=== PATIENT | male | born 1985 | race Hispanic/Latino ===

== ENCOUNTER 2021-02-18 09:06 | Observation (INO) | payer SELFPAY ==
--- NOTE | ~2021-02-18 | CT_ITS ---
EXAMINATION: CT abdomen pelvis w con DATE: 02/18/2021 12:38 INDICATION: Abdominal pain and vomiting TECHNIQUE: Computed tomography (CT) of the abdomen and pelvis was performed with 100 cc Omnipaque 350 intravenous contrast. The dose-length product was 749.28 mGy-cm. Automated exposure control and iter ative reconstruction technique were employed. COMPARISON: None. FINDINGS: Heart size normal. No significant pleural or pericardial effusion. Fatty infiltration of the liver. The spleen, pancreas, right adrenal gland and kidneys are unremarkab le. There is a 1.5 cm left adrenal mass, statistically likely benign adenoma. Gallbladder is present. Nonobstructive bowel gas pattern. There is a thickened enhancing appendix measuring up to 1.6 cm max imum transverse dimension with mild periappendiceal inflammation. No evidence for perforation or absc ess. No free air or free fluid. No acute osseous abnormality. Mild lumbar spondylosis. IMPRESSION: 1. Acute uncomplicated appendicitis. Reviewed, dictated and finalized at location A.
[2021-02-18 09:11] VITALS: BP 159/87; PULSE 68; RESP 20; TEMP 35.7; O2SAT 100
[2021-02-18 09:45] LABS: Basophils Absolute Auto 0.1 K/mm3 (0.0-0.1); Basophils Percent Auto 0.3 % (0.2-1.2); Hematocrit 44.9 % (42.0-52.0); Hemoglobin 16.2 g/dL (14.0-18.0); Immature Granulocyte Percent A 0.4 % (0-0.5); Lymphocytes Absolute Auto 1.52 K/mm3 (0.9-3.2); Lymphocytes Percent Auto 6.8 % (18.3-44.2); Mean Corpuscular HGB Conc 36.1 g/dl (32-36); Mean Corpuscular Hemoglobin 30.7 pg (26-34); Mean Platelet Volume 9.2 fl (7.4-10.4); Monocytes Absolute Auto 0.8 K/mm3 (0.1-0.6); Monocytes Percent Auto 3.4 % (2.6-8.5); Neutrophils Absolute Auto 19.8 K/mm3 (1.3-6.7); Neutrophils Percent Auto 89.1 % (45.5-73.1); Platelet Count Result 344 k/mm3 (150-375); Red Blood Count 5.28 M/mm3 (4.6-6.20); Red Cell Distribution Width 12.5 % (11.5-14.5); White Blood Count 22.3 K/mm3 (4.5-10.0)
[2021-02-18 10:02] LABS: Alanine Aminotransferase 87 U/L (4-50); Albumin Level 5.6 g/dL (3.5-5.1); Alkaline Phosphatase 88 U/L (38-126); Anion Gap 14 mmol/L (8-16); Aspartate Amino Transferase 45 U/L (17-59); Bilirubin,Total 0.8 mg/dL (0.2-1.3); Blood Urea Nitrogen 19 mg/dL (9-20); Calcium 9.4 mg/dL (8.4-10.2); Carbon Dioxide 28 mmol/L (22-30); Chloride 101 mmol/L (98-107); Estimated CRCL calculation 116 ml/min; Estimated Glomerular Filt Rate > 60; Glucose 153 mg/dL (65-110); Lipase 84 U/L (23-300); Potassium 3.7 mmol/L (3.4-5.0); Sodium 143 mmol/L (137-145)
[2021-02-18 11:05] VITALS: BP 137/87; PULSE 80; RESP 12; O2SAT 98
--- NOTE | 2021-02-18 11:38 | ED.GENADULT ---
HPI - General Adult General Chief complaint: Abdominal Pain Stated complaint: abd pain Time Seen by Provider: 02/18/21 10:51 Source: patient Mode of arrival: ambulatory Limitations: language barrier and other (history obtained with assistance of historic interpreter) History of Present Illness HPI narrative: Patient presents for evaluation of abdominal pain. Symptom onset 0200 this morning. Symptoms started after eating a cheese quesadilla one hour prior to time of symptom onset. He states the pain is constant, progressively worsening, currently 10/10 in severity, described as gripping and squeezing . He has experienced nausea and vomiting. Last bowel movement around 0400 this morning, small in size, solid in consistency. No blood or mucous in the stool. He had similar episodes back in October and also in December. He did not seek medical assistance at that time. Denies ETOH use, cigarette use and illicit drug use. No hx of abdominal surgeries. He tried taking an unknown OTC agent for his symptoms without improvement in his symptoms thereafter. Related Data Home Medications Medication Instructions Recorded Confirmed No Home Medications 02/18/21 02/18/21 Allergies Allergy/AdvReac Type Severity Reaction Status Date / Time No Known Allergies Allergy Verified 02/18/21 11:49 Review of Systems Review of Systems: CONSTITUTIONAL:Reports hot flashes and chills EYES: Denies visual changes, redness, or discharge. ENT: Denies rhinorrhea, congestion, sore throat, or otalgia. CARDIOVASCULAR: Denies chest pain, palpitations, or edema. RESPIRATORY: Denies cough or dyspnea. GASTROINTESTINAL:Reports abdominal pain, nausea, vomiting and constipation GENITOURINARY: Denies dysuria or hematuria. SKIN: Denies rash or itching. MUSCULOSKELETAL: Denies back pain, joint pain, or myalgia. NEUROLOGIC: Denies headache, numbness, dizziness, or weakness. PSYCHIATRIC: Denies anxiety or depression. 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 Visibly uncomfortable but in no apparent distress. Exhibits facial grimacing HEAD: Normocephalic, atraumatic. EYES: PERRLA and EOMI. ENT: Nares clear, no rhinorrhea or epistaxis. Mucous membranes moist. Oropharynx without tonsillar hypertrophy exudate or other lesions. Bilateral TMs pearly monsalve nonbulging NECK: Supple. No adenopathy or masses. No carotid bruits or JVD CHEST: Clear to auscultation. No respiratory distress. No wheezes rales or rhonchi HEART: Regular rate and rhythm. No murmur heard. Normal peripheral pulses. ABDOMEN: Soft, tenderness in RUQ and RLQ without rebound EXTREMITIES: Normal range of motion. No edema. SKIN: Warm, dry, no rash. NEURO: No focal deficits. Alert and oriented x3. Trinidadian speaking PSYCH: Normal mood and affect. Course Course Emergency Course: This is a 35-year-old male that presented with complaints of abdominal pain, he had a leukocytosis but lactate was WNL. Initial consideration was for cholecystitis versus appendicitis versus pancreatitis. He was given morphine in the ER and Zofran. Symptoms improved. CT imaging showed uncomplicated appendicitis. Discussed all relevant facts of case with general surgery, Dr. Vickers. He indicates to admit patient to
[2021-02-18] MEDS: SODIUM CHLORIDE 0.9% IV 1,000 ML 999 ML IV CONT (11:50)
[2021-02-18] MEDS: MORPHINE SULFATE (*CRX) 4 MG/ML INJ IV PUSH ×2 (11:50→20:16)
[2021-02-18] MEDS: ONDANSETRON INJ 4 MG/2 ML VIAL IV PUSH ×2 (11:50→20:16)
[2021-02-18 12:13] LABS: Lactic Acid Reflex 2.1 mmol/L (0.7-2.1)
[2021-02-18 14:20] VITALS: BP 131/84; PULSE 101; RESP 20; O2SAT 99
[2021-02-18 15:01] LABS: Reflex Lactic Acid Yes or No Add Lactic
[2021-02-18 15:24] LABS: Lactic Acid 1.8 mmol/L (0.7-2.1)
--- NOTE | 2021-02-18 16:01 | ADMGEN ---
This patient, Chiki Infante, was admitted to 2 Medical Room 261-01. Patient oriented to hospital policies and general routines including ID bracelet, bed and alarms, visiting hours, pain management, procedures, bathroom and other care routines, personal items, smoking policy, room service/diet, and visiting hours. Information on how to activate the Rapid Response Team has been discussed. Patient is encouraged to report perceived risks to care and to ask questions if they do not understand what they are told or what they should do.
[2021-02-18 16:05] VITALS: BP 121/68; PULSE 102; RESP 16; TEMP 37.8; O2SAT 99
[2021-02-18 16:20] VITALS: BMI 33.3
[2021-02-18] MEDS: SODIUM CHLORIDE 0.9% IV 1,000 ML 125 ML IV CONT (17:45)
[2021-02-18 22:00] VITALS: BP 115/62; PULSE 88; RESP 20; TEMP 37.3; O2SAT 98
[2021-02-19] VITALS (12 sets, daily range): BP systolic 113–150; BP diastolic 60–90; PULSE 60–90; RESP 16–21; TEMP 36.2–36.8; O2SAT 97–100
[2021-02-19 02:02] LABS: Add Urine Microscopic? YES; Appearance Urine Clear (Clear); Bacteria Urine Trace /hpf; Bilirubin Urine Negative (Negative); Blood Urine Negative (Negative); Color Urine Yellow (Yellow); Glucose Urine UA Negative (Negative); Ketones Urine Negative (Negative); Leukocyte Esterase Ur Negative LEU/UL (Negative); Nitrate Urine Negative (Negative); Protein Urine 1+ mg/dL (Negative); Urobilinogen Urine Negative mg/dL (<2.0); WBC Urine 0-3 /hpf
[2021-02-19 02:10] LABS: Specific Grav Ur 1.036 (1.001-1.035)
[2021-02-19] MEDS: SODIUM CHLORIDE 0.9% IV 1,000 ML 125 ML IV CONT (03:10)
[2021-02-19 06:43] LABS: Basophils Percent Auto 0.3 % (0.2-1.2); Eosinophils Absolute Auto 0.1 K/mm3 (0-0.3); Eosinophils Percent Auto 0.6 % (0-4.4); Hematocrit 39.2 % (42.0-52.0); Hemoglobin 13.7 g/dL (14.0-18.0); Immature Granulocyte Absolute 0.05 K/mm3 (0.00-0.031); Immature Granulocyte Percent A 0.4 % (0-0.5); Lymphocytes Absolute Auto 2.41 K/mm3 (0.9-3.2); Lymphocytes Percent Auto 18.4 % (18.3-44.2); Mean Corpuscular HGB Conc 34.9 g/dl (32-36); Mean Corpuscular Hemoglobin 30.2 pg (26-34); Mean Corpuscular Volume 86.5 fl (80-100); Mean Platelet Volume 9.6 fl (7.4-10.4); Monocytes Absolute Auto 1.2 K/mm3 (0.1-0.6); Monocytes Percent Auto 9.2 % (2.6-8.5); Neutrophils Absolute Auto 9.3 K/mm3 (1.3-6.7); Neutrophils Percent Auto 71.1 % (45.5-73.1); Platelet Count Result 290 k/mm3 (150-375); Red Blood Count 4.53 M/mm3 (4.6-6.20); Red Cell Distribution Width 13.1 % (11.5-14.5); White Blood Count 13.1 K/mm3 (4.5-10.0)
[2021-02-19 06:57] LABS: Alanine Aminotransferase 54 U/L (4-50); Albumin Level 4.2 g/dL (3.5-5.1); Alkaline Phosphatase 54 U/L (38-126); Anion Gap 9 mmol/L (8-16); Aspartate Amino Transferase 28 U/L (17-59); Blood Urea Nitrogen 17 mg/dL (9-20); Calcium 8.2 mg/dL (8.4-10.2); Carbon Dioxide 26 mmol/L (22-30); Chloride 105 mmol/L (98-107); Estimated CRCL calculation 102 ml/min; Estimated Glomerular Filt Rate > 60; Glucose 100 mg/dL (65-110); Potassium 3.8 mmol/L (3.4-5.0); Sodium 140 mmol/L (137-145)
--- NOTE | 2021-02-19 09:31 | PM.IMHP ---
H&P: HPI History of Present Illness Date/Time: 02/19/21 09:31 Chief Complaint: right lower quadrant pain Narrative: this is a 35-year-old Jordanian-speaking male who presented to the emergency department yesterday with right lower quadrant pain. Interpretation service is used for communication. He states that the pain started around 2:00 a.m. yesterday morning. He denies any fevers, nausea, or vomiting. He did have an episode like this about 4 months ago, but he did not present to the hospital and this pain went away on its own. This time the pain became more severe and was persisting. He denies any other associated symptoms. He is otherwise healthy and this is the 1st time he has ever been to the hospital. Review of Systems Review of Systems: All systems reviewed & are unremarkable except as noted in HPI and below Constitutional: Constitutional: Denies chills and Denies fever(s) Eyes: Eyes: Denies change in vision ENT: Denies hearing loss, Denies neck pain and Denies sore throat Cardiovascular: Cardiovascular: Denies chest pain and Denies dyspnea Respiratory: Respiratory: Denies cough, Denies dyspnea and Denies wheezing Gastrointestinal: Gastrointestinal: Reports as per HPI Genitourinary: Genitourinary: Denies hematuria and Denies dysuria Musculoskeletal: Musculoskeletal: Denies arthralgias, Denies joint swelling and Denies neck pain Allergic/Immunologic: Allergic/Immunologic: Denies wheezing PMFSH Past Medical History Medical History No pertinent past medical history Surgical History Surgical History No pertinent past surgical history Family History Family History Mother No pertinent past medical history Diabetes mellitus Father Diabetes mellitus Social History Social History Smoking status: Never smoker Second hand tobacco smoke exposure: No Alcohol intake: never Substance use: never Living arrangements: with friend(s) Additional occupation/education comments: Works on a [employer] Gender identity (if verbalized by the patient): Male Spiritual care concerns: No Meds Home Medications and Allergies Home Medications Medication Instructions Recorded Confirmed Type No Home Medications 02/18/21 02/18/21 History Allergies Allergy/AdvReac Type Severity Reaction Status Date / Time No Known Allergies Allergy Verified 02/18/21 11:49 Vital Signs Vital Signs - 24 hr 02/18/21 11:05 02/18/21 14:20 02/18/21 16:05 Temperature 37.8 C H Pulse Rate 80 101 H 102 H Respiratory Rate 12 20 16 Blood Pressure 137/87 131/84 121/68 Pulse Oximetry 98 99 99 02/18/21 22:00 02/19/21 06:00 Temperature 37.3 C 36.4 C Pulse Rate 88 60 Respiratory Rate 20 21 H Blood Pressure 115/62 124/60 Pulse Oximetry 98 100 Exam Const: General: alert; No acute distress Orientation/consciousness: patient oriented x3 Limitations: no limitations HENMT: Head: normocephalic and atraumatic Ears: hearing grossly normal bilaterally General nose exam: Normal external nose present and Normal nares present Mouth: Yes Normal oral and palatal mucosa present and Yes moist mucous membranes Eyes: General: appearance normal, both eyes and all related structures Conjunctivae: conjunctivae normal Sclera: sclerae normal Pupils: Equal, round and reactive pupils present EOM: EOMs intact bilaterally Neck: Neck: normal visual inspection, full ROM, no lymphadenopathy, supple and no JVD Lymphatic: no lymphadenopathy noted Chest: Chest palpation & inspection: normal inspection of the chest Resp: Effort & Inspection: normal respiratory effort and able to speak in complete sentences Auscultation: clear to auscultation bilaterally Percussion: percussion normal Cardio: Jugular venous
--- NOTE | 2021-02-19 09:36 | WPDHPUPDATE1 ---
History and Physical Update Update Date/Time: 02/19/21 09:36 History and Physical has been reviewed, including an updated exam of the patient. There are NO changes in the patient's condition. Risks, benefits, and alternatives have been discussed and questions answered. Patient agrees to proceed with procedure.
--- NOTE | 2021-02-19 11:11 | SUR.PREOP ---
USED [employer]LE INSPECTOR FOR SWISS SPEAKING
[2021-02-19] MEDS: LACTATED RINGERS 1,000 ML 30 ML IV CONT (11:34)
--- NOTE | 2021-02-19 12:17 | WPDANESEPP ---
Anes - Eval Pre Procedure Procedure: Operation Date: 02/19/21 12:00 Proposed Procedures p Laparoscopic Appendectomy, Possible Open - Tj Vickers DO Date/Time: 02/19/21 12:17 Pre Op Diagnosis: appendicitis Patient Data Age: 35 Gender: M Height: 1.63 m Weight: 88 kg Last Vital Signs Temp 36.7 C 02/19/21 11:24 Pulse 65 02/19/21 11:24 Resp 18 02/19/21 11:24 BP 122/72 02/19/21 11:24 Pulse Ox 99 02/19/21 11:24 Allergies Allergy/AdvReac Type Severity Reaction Status Date / Time No Known Allergies Allergy Verified 02/18/21 11:49 Home Medications Medication Instructions Recorded Confirmed Type No Home Medications 02/18/21 02/18/21 History Laboratory Tests 02/18/21 02/19/21 02/19/21 15:10 01:27 05:44 WBC 13.1 K/mm3 H K/mm3 (4.5-10.0) RBC 4.53 M/mm3 L M/mm3 (4.6-6.20) Hgb 13.7 g/dL L g/dL (14.0-18.0) Hct 39.2 % L % (42.0-52.0) MCV 86.5 fl fl (80-100) MCH 30.2 pg pg (26-34) MCHC 34.9 g/dl g/dl (32-36) RDW 13.1 % % (11.5-14.5) Plt Count 290 k/mm3 k/mm3 (150-375) MPV 9.6 fl fl (7.4-10.4) Immature Gran % (Auto) 0.4 % % (0-0.5) Neut % (Auto) 71.1 % % (45.5-73.1) Lymph % (Auto) 18.4 % % (18.3-44.2) [place] % (Auto) 9.2 % H % (2.6-8.5) Eos % (Auto) 0.6 % % (0-4.4) Baso % (Auto) 0.3 % % (0.2-1.2) Lymph # (Auto) 2.41 K/mm3 K/mm3 (0.9-3.2) [place] # (Auto) 1.2 K/mm3 H K/mm3 (0.1-0.6) Eos # (Auto) 0.1 K/mm3 K/mm3 (0-0.3) Baso # (Auto) 0.0 K/mm3 K/mm3 (0.0-0.1) Abs Immat Gran (auto) 0.05 K/mm3 H K/mm3 (0.00-0.031) Absolute Neuts (auto) 9.3 K/mm3 H K/mm3 (1.3-6.7) Absolute Nucleated RBC 0.0 K/mm3 K/mm3 (0.0-0.012) Nucleated RBC % 0.0 % % (0.0-0.2) Sodium Potassium Chloride Carbon Dioxide Anion Gap BUN Creatinine Estim Creat Clear Calc Estimated GFR Glucose Lactic Acid 1.8 mmol/L mmol/L (0.7-2.1) Calcium Total Bilirubin AST ALT Alkaline Phosphatase Total Protein Albumin Urine Color Yellow (Yellow) Urine Appearance Clear (Clear) Urine pH 7.0 (5.0-9.0) Ur Specific [place] 1.036 H (1.001-1.035) Urine Protein 1+ mg/dL H mg/dL (Negative) Urine Glucose (UA) Negative mg/dL mg/dL (Negative) Urine Ketones Negative mg/dL mg/dL (Negative) Ur Blood (Man) Negative (Negative) Urine Nitrate Negative (Negative) Urine Bilirubin Negative (Negative) Urine Urobilinogen Negative mg/dL mg/dL (<2.0) Leukocyte Esterase Rfl Negative DANN/UL DANN/UL (Negative) Urine RBC 11-20 /hpf H /hpf (0-2) Urine WBC 0-3 /hpf /hpf Urine Bacteria Trace /hpf /hpf 02/19/21 05:44 WBC RBC Hgb Hct MCV MCH MCHC RDW Plt Count MPV Immature Gran % (Auto) Neut % (Auto) Lymph % (Auto) [place] % (Auto) Eos % (Auto) Baso % (Auto) Lymph # (Auto) [place] # (Auto) Eos # (Auto) Baso # (Auto) Abs Immat Gran (auto) Absolute Neuts (auto) Absolute Nucleated RBC Nucleated RBC % Sodium 140 mmol/L mmol/L (137-145) Potassium 3.8 mmol/L mmol/L (3.4-5.0) Chloride 105 mmol/L mmol/L (98-107) Carbon Dioxide 26 mmol/L mmol/L (22-30) Anion Gap 9 mmol/L mmol/L (8-16) BUN 17 mg/dL mg/dL (9-20) Creatinine 0.90 mg/dL mg/dL (0.7-1.3) Estim Creat Clear Calc 102 ml/min ml/min Estimated GFR
--- NOTE | 2021-02-19 12:23 | WPDANESEPPF ---
Anes - Initial Pre Proc Eval Procedure: Operation Date: 02/19/21 12:00 Proposed Procedures p Laparoscopic Appendectomy, Possible Open - Tj Vickers DO Date/Time: 02/19/21 12:23 Surgeon: Tj Vickers DO Pre Op Diagnosis: appendicitis Patient Data Age: 35 Gender: M Height: 1.63 m Weight: 88 kg Last Vital Signs Temp 98.1 F 02/19/21 11:24 Pulse 65 02/19/21 11:24 Resp 18 02/19/21 11:24 BP 122/72 02/19/21 11:24 Pulse Ox 99 02/19/21 11:24 Allergies Allergy/AdvReac Type Severity Reaction Status Date / Time No Known Allergies Allergy Verified 02/18/21 11:49 Home Medications Medication Instructions Recorded Confirmed Type No Home Medications 02/18/21 02/18/21 History Laboratory Tests 02/18/21 02/19/21 02/19/21 15:10 01:27 05:44 WBC 13.1 K/mm3 H K/mm3 (4.5-10.0) RBC 4.53 M/mm3 L M/mm3 (4.6-6.20) Hgb 13.7 g/dL L g/dL (14.0-18.0) Hct 39.2 % L % (42.0-52.0) MCV 86.5 fl fl (80-100) MCH 30.2 pg pg (26-34) MCHC 34.9 g/dl g/dl (32-36) RDW 13.1 % % (11.5-14.5) Plt Count 290 k/mm3 k/mm3 (150-375) MPV 9.6 fl fl (7.4-10.4) Immature Gran % (Auto) 0.4 % % (0-0.5) Neut % (Auto) 71.1 % % (45.5-73.1) Lymph % (Auto) 18.4 % % (18.3-44.2) [place] % (Auto) 9.2 % H % (2.6-8.5) Eos % (Auto) 0.6 % % (0-4.4) Baso % (Auto) 0.3 % % (0.2-1.2) Lymph # (Auto) 2.41 K/mm3 K/mm3 (0.9-3.2) [place] # (Auto) 1.2 K/mm3 H K/mm3 (0.1-0.6) Eos # (Auto) 0.1 K/mm3 K/mm3 (0-0.3) Baso # (Auto) 0.0 K/mm3 K/mm3 (0.0-0.1) Abs Immat Gran (auto) 0.05 K/mm3 H K/mm3 (0.00-0.031) Absolute Neuts (auto) 9.3 K/mm3 H K/mm3 (1.3-6.7) Absolute Nucleated RBC 0.0 K/mm3 K/mm3 (0.0-0.012) Nucleated RBC % 0.0 % % (0.0-0.2) Sodium Potassium Chloride Carbon Dioxide Anion Gap BUN Creatinine Estim Creat Clear Calc Estimated GFR Glucose Lactic Acid 1.8 mmol/L mmol/L (0.7-2.1) Calcium Total Bilirubin AST ALT Alkaline Phosphatase Total Protein Albumin Urine Color Yellow (Yellow) Urine Appearance Clear (Clear) Urine pH 7.0 (5.0-9.0) Ur Specific [place] 1.036 H (1.001-1.035) Urine Protein 1+ mg/dL H mg/dL (Negative) Urine Glucose (UA) Negative mg/dL mg/dL (Negative) Urine Ketones Negative mg/dL mg/dL (Negative) Ur Blood (Man) Negative (Negative) Urine Nitrate Negative (Negative) Urine Bilirubin Negative (Negative) Urine Urobilinogen Negative mg/dL mg/dL (<2.0) Leukocyte Esterase Rfl Negative DANN/UL DANN/UL (Negative) Urine RBC 11-20 /hpf H /hpf (0-2) Urine WBC 0-3 /hpf /hpf Urine Bacteria Trace /hpf /hpf 02/19/21 05:44 WBC RBC Hgb Hct MCV MCH MCHC RDW Plt Count MPV Immature Gran % (Auto) Neut % (Auto) Lymph % (Auto) [place] % (Auto) Eos % (Auto) Baso % (Auto) Lymph # (Auto) [place] # (Auto) Eos # (Auto) Baso # (Auto) Abs Immat Gran (auto) Absolute Neuts (auto) Absolute Nucleated RBC Nucleated RBC % Sodium 140 mmol/L mmol/L (137-145) Potassium 3.8 mmol/L mmol/L (3.4-5.0) Chloride 105 mmol/L mmol/L (98-107) Carbon Dioxide 26 mmol/L mmol/L (22-30) Anion Gap 9 mmol/L mmol/L (8-16) BUN 17 mg/dL mg/dL (9-20) Creatinine 0.90 mg/dL mg/dL (0.7-1.3) Estim Creat Clear Calc
[2021-02-19] MEDS: BUPIVACAINE HCL 0.5% PF 30 ML VIAL INFILTRATE (13:00)
--- NOTE | 2021-02-19 13:14 | SUR.OPER ---
PRE OP [employer] [facility] [facility] #[id number] USED FOR PREOP QUESTIONS AND EXPLANATIONS OF SURGERY PER DR HARDWICK AND Rios TURNER RN.
--- NOTE | 2021-02-19 13:30 | W.PM.PROC2 ---
Procedure Note - Detailed Date of Procedure 02/19/21 Pre-op Diagnosis appendicitis Post-op Diagnosis same Procedure Performed Laparoscopic appendectomy Surgeon Tj Vickers, DO Anesthesia general and local (0.5% bupivicaine) Indications This is a 35-year-old Slovak-speaking man who presented to the emergency department yesterday with right lower quadrant pain that woke come up around 2 a.m.. He denied any fevers or chills. CT of his abdomen and pelvis showed evidence of acute appendicitis. He was admitted for further treatment. Discussions were made with the patient about treatment options and decision was made to proceed with laparoscopic appendectomy, possible open. Findings Laparoscopic appendectomy was performed. The appendix appeared acutely inflamed, but there was no evidence of perforation or abscess. The base of the appendix appeared healthy and viable. The appendix was removed and sent to the lab for pathology. No other intra-abdominal abnormalities were noted. Description of Procedure Procedure as well as risks, benefits, and alternatives were explained to the patient. The patient agreed to proceed. Written consent was obtained and placed in chart prior to procedure. The patient was brought back to surgical suite. He was placed supine on operating table. Time-out was done to confirm the patient and procedure. The patient was then intubated by the Anesthesia Department. His abdomen was prepped and draped in sterile fashion using chlorhexidine prep. A 5 mm incision was made just to the left of the patient's umbilicus and a 5 mm Optiview trocar was advanced through the abdominal layers under direct visualization. Once inside the peritoneal cavity, carbon dioxide insufflation was used to create a pneumoperitoneum. The camera was inserted and the abdomen was inspected. No immediate abnormalities were identified. The patient was then placed in slight Trendelenburg position and rotated to the left. A 5 mm incision was made in the suprapubic region in midline and a 5 mm trocar was inserted under direct visualization. A 12 mm incision was made in the left lower quadrant and a 12 mm trocar was inserted under direct visualization. The right lower quadrant was carefully inspected. The cecum was identified and then this was traced back to the appendix. The appendix was identified and grasped at the mesoappendix and lifted anteriorly. Careful blunt dissection was carried out at the base of the appendix through the mesoappendix using a [place] grasper. An Endo-DAVID 45 mm blue load stapler was then advanced across the base of the appendix and clamped and fired. A white reload was then clamped across the mesoappendix and fired. This freed up our appendix completely. It was then placed in an EndoCatch bag and removed through the left lower quadrant port. The staple lines were then inspected. Hemostasis appeared adequate and the staple lines appeared secure. The area was then irrigated with sterile saline. The pelvis was then carefully inspected and irrigated with sterile saline as well and the remainder of the abdomen was carefully inspected. The patient was then flattened out in bed. One final inspection was made around the abdominal cavity and no other abnormalities were seen. The left lower quadrant port was removed and a Suman-Violeta cone was used to approximate the fascia with an 0 Vicryl simple interrupted suture. The remaining ports were then removed under direct visualization. The camera was removed and the pneumoperitoneum was released. 0.5% bupivacaine with epinephrine was infiltrated locally around each of the incisions. The skin of the incisions was then approximated using 4-0 Monocryl subcuticular suture and Exofin glue was applied on top. The patient was then awakened from anesthesia, extubated, and transferred to Recovery. Estimated Blood Loss 10 Urine Output 500 Pathology yes (Appendix) Complications No immediate
--- NOTE | 2021-02-19 13:33 | PM.DS ---
DS: Admitting Diagnosis Discharge Date 02/19/2021 Admitting Diagnosis Acute appendicitis DS: Discharge Diagnosis Discharge Diagnosis (1) Acute appendicitis: Qualifiers: Acute appendicitis type: unspecified acute appendicitis type Qualified Code(s): K35.80 - Unspecified acute appendicitis Code(s): K35.80 - Unspecified acute appendicitis Status: Acute DS: Summary Hospital Course Reason for hospitalization: Acute appendicitis Hospital Course: This is a 35-year-old man who presented to the emergency department on 02/18/2021 with right lower quadrant pain. Workup showed elevated white blood count and CT showed evidence of acute appendicitis. He was started on IV Zosyn and was admitted to the hospital for observation. Decision was made to proceed with laparoscopic appendectomy on 02/19/2021. Surgery was uncomplicated. He was returned to the surgical floor postoperatively. His diet and activity were advanced as tolerated. Once his pain was adequately controlled, vitals remained stable, he was tolerating a regular diet, and ambulating in the kinsey, he was discharged home. Status at Discharge Functional status at discharge: independent ambulation Overall status at discharge: patient is progressing back to baseline Time Spent with Patient Time attestation: Total time spent providing and/or coordinating discharge services: Time spent: Less than 30 minutes Exam Narrative: Unchanged from preop exam aside from surgical changes DS: Data Data Completed and Pending Pending studies at discharge: Pending at discharge 02/19/21 13:06 Surgical [PTH] Routine Labs on day of discharge: Labs from last 24 hours 02/19/21 02/19/21 02/19/21 05:44 05:44 01:27 WBC 13.1 H RBC 4.53 L Hgb 13.7 L Hct 39.2 L MCV 86.5 MCH 30.2 MCHC 34.9 RDW 13.1 Plt Count 290 MPV 9.6 Immature Gran % (Auto) 0.4 Neut % (Auto) 71.1 Lymph % (Auto) 18.4 [place] % (Auto) 9.2 H Eos % (Auto) 0.6 Baso % (Auto) 0.3 Lymph # (Auto) 2.41 [place] # (Auto) 1.2 H Eos # (Auto) 0.1 Baso # (Auto) 0.0 Abs Immat Gran (auto) 0.05 H Absolute Neuts (auto) 9.3 H Absolute Nucleated RBC 0.0 Nucleated RBC % 0.0 Sodium 140 Potassium 3.8 Chloride 105 Carbon Dioxide 26 Anion Gap 9 BUN 17 Creatinine 0.90 Estim Creat Clear Calc 102 Estimated GFR > 60 Glucose 100 Lactic Acid Calcium 8.2 L Total Bilirubin 1.0 AST 28 ALT 54 H Alkaline Phosphatase 54 Total Protein 7.0 Albumin 4.2 Urine Color Yellow Urine Appearance Clear Urine pH 7.0 Ur Specific [place] 1.036 H Urine Protein 1+ H Urine Glucose (UA) Negative Urine Ketones Negative Ur Blood (Man) Negative Urine Nitrate Negative Urine Bilirubin Negative Urine Urobilinogen Negative Leukocyte Esterase Rfl Negative Urine RBC 11-20 H Urine WBC 0-3 Urine Bacteria Trace 02/18/21 15:10 WBC RBC Hgb Hct MCV MCH MCHC RDW Plt Count MPV Immature Gran % (Auto) Neut % (Auto) Lymph % (Auto) [place] % (Auto) Eos % (Auto) Baso % (Auto) Lymph # (Auto) [place] # (Auto) Eos # (Auto) Baso # (Auto) Abs Immat Gran (auto) Absolute Neuts (auto) Absolute Nucleated RBC Nucleated RBC % Sodium Potassium Chloride Carbon Dioxide Anion Gap BUN Creatinine Estim Creat Clear Calc Estimated GFR Glucose Lactic Acid 1.8 Calcium Total Bilirubin AST ALT Alkaline Phosphatase Total Protein Albumin Urine Color Urine Appearance Urine pH Ur Specific [place] Urine Protein Urine Glucose (UA) Urine Ketones Ur Blood (Man) Urine Nitrate Urine Bilirubin Urine Urobilinogen Leukocyte Esterase Rfl Urine RBC Urine WBC Urine Bacteria Preliminary micro results at discharge 02/18/21 11:56 Blood Culture - Preliminary Blood 02/18/21 11:56 Blood Culture - Preliminary Blood Alena
[2021-02-19] MEDS: HYDROcodone/acetaminophen (*CRX) 5-325 MG TABLET 1 TAB PO (16:48)
--- NOTE | 2021-02-19 17:49 | PC.NURSE ---
patient ambulated in the hallway, ate dinner (low fat), no complaints of nausea at this time, pain at a 3 out of 10 after medication. patient agreeable to discharge at this time.
== END 2021-02-19 18:20 | disposition home or self-care (01) ==
LOC: ANHED 14:39 → ANH2MED 15:04
PROVIDERS: Emergency Medicine; Admitting Provider Surgery; Emergency Provider Nurse Practitioner; Visit Provider Surgery
PROC: 0DTJ4ZZ Resection of Appendix, Percutaneous Endoscopic Approach (ICD-10-PCS; CPT 44970; principal; 2021-02-19 12:00)
DX: K35.30 Acute appendicitis with localized peritonitis, without perforation or gangrene (principal)
CPT/HCPCS: 44970; 36415; 74177; 80053; 81001; 83605; 83690; 85025; 87040; 87076; 88304; 96361; 96365; 96375; 96376; 99285; A9270; G0378; G0379; J1100; J2250; J2270; J2405; J2543; J2704; J2710; J3010; J7030; J7120; Q9967